=== PATIENT | male | born 1995 | race Caucasian/White ===

== ENCOUNTER → 2022-03-15 | Outpatient (CLI) | payer BC ==
[2022-03-15 17:43] LABS: HEMATOCRIT 45.4 % (42.0-52.0); HEMOGLOBIN 15.8 g/dL (13.5-18.0); MEAN PLATELET VOLUME 8.7 fl (7.4-10.4); RED BLOOD COUNT 5.18 M/mm3 (4.20-5.60); RED CELL DISTRIBUTION WIDTH 11.9 % (11.5-14.5); WHITE BLOOD COUNT 9.9 K/mm3 (4.8-10.8)
[2022-03-15 17:53] LABS: ALBUMIN 4.4 g/dL (3.5-5.0)
[2022-03-15 17:54] LABS: POTASSIUM 3.8 mmol/L (3.5-5.1)
[2022-03-15 17:55] LABS: CALCIUM 9.4 mg/dL (8.3-10.5)
[2022-03-15 17:56] LABS: TOTAL PROTEIN 7.3 g/dL (6.4-8.3)
[2022-03-15 17:58] LABS: TOTAL BILIRUBIN 0.3 mg/dL (0.2-1.2)
== END ==
LOC: LAB 17:32
PROVIDERS: Family Medicine
DX: F41.8 Other specified anxiety disorders (principal); R53.83 Other fatigue; R68.82 Decreased libido

== ENCOUNTER → 2024-08-03 | Outpatient (CLI) | payer BC | LOC: LAB 09:46 | DX: R68.82 Decreased libido (principal) ==